=== PATIENT | female | born 1970 | race Caucasian/White ===

== ENCOUNTER 2018-12-13 15:06 | Emergency (ER) | payer OTHER ==
[~2018-12-13] VITALS: Ht 165.1 cm; Wt 77.1 kg
[~2018-12-13 15:06] MED LIST: ANAPROX DS550 MG PO
== END 2018-12-13 16:05 | disposition home or self-care (01) ==
LOC: ED 15:06
DX: L30.9 Dermatitis, unspecified (principal)

== ENCOUNTER 2020-01-05 12:40 | Emergency (ER) | payer OTHER ==
[~2020-01-05] VITALS: Wt 86.2 kg
[2020-01-05] MEDS ORDERED: CEPHALEXIN500 M1 PO (16:12)
== END 2020-01-05 16:22 | disposition home or self-care (01) ==
LOC: ED 12:40
DX: S60.552A Superficial foreign body of left hand, initial encounter (principal); Z79.899 Other long term (current) drug therapy; X58.XXXA Exposure to other specified factors, initial encounter; Y93.89 Activity, other specified; Y92.89 Other specified places as the place of occurrence of the external cause; Y99.8 Other external cause status

== ENCOUNTER 2020-12-15 13:06 | Emergency (ER) | payer OTHER ==
[~2020-12-15] VITALS: Wt 97.5 kg
[~2020-12-15 13:06] MED LIST changes: +CEPHALEXIN500 M1 PO
== END 2020-12-15 13:33 | disposition home or self-care (01) ==
LOC: ED 13:06
DX: L30.9 Dermatitis, unspecified (principal); Z79.899 Other long term (current) drug therapy; Z79.2 Long term (current) use of antibiotics

== ENCOUNTER → 2022-01-30 | Outpatient (CLI) | payer OTHER ==
[2022-01-30 12:30] LABS: BASO % 0.5 % (0.0-1.0); EOS # 0.2 10*3/uL (0.0-0.4); EOS % 2.5 % (1.0-4.0); HEMATOCRIT 42.3 % (37.0-47.0); LYMPH % 32.7 % (27.0-41.0); MEAN CELL VOLUME 92.8 fl (81.0-99.0); MEAN CORPUSCULAR HGB 31.4 pg (27.0-31.0); MEAN CORPUSCULAR HGB CONC 33.8 g/dl (33.0-37.0); MEAN PLATELET VOLUME 9.7 fl (9.6-12.3); MONO # 0.4 10*3/uL (0.1-1.0); MONO % 7.3 % (3.0-9.0); NEUT # 3.4 10*3/uL (2.3-7.9); NEUT % 56.5 % (47.0-73.0); PLATELET COUNT AUTOMATED 203 10*3/uL (130-400); RED BLOOD COUNT 4.56 10*6/uL (4.10-5.10)
[2022-01-30 12:49] LABS: ALKALINE PHOSPHATASE 77 U/L (45-117); BUN 16 mg/dl (7-24); CHLORIDE 112 mmol/L (98-107); CREATININE 0.79 mg/dL (0.55-1.02); POTASSIUM 4.2 mmol/L (3.5-5.1); SGOT/AST 11 IU/L (3-35); SGPT/ALT 21 U/L (12-78); SODIUM 143 mmol/L (136-145); TOTAL PROTEIN 7.3 gm/dL (6.4-8.2)
== END | disposition home or self-care (01) ==
LOC: LAB 12:13
PROVIDERS: ATTEND Specialist
DX: L25.9 Unspecified contact dermatitis, unspecified cause (principal); L20.9 Atopic dermatitis, unspecified; L29.9 Pruritus, unspecified; Z79.891 Long term (current) use of opiate analgesic

== ENCOUNTER → 2023-05-24 | Outpatient (CLI) | payer OTHER | END | disposition home or self-care (01) | LOC: MAMMO 03:55 | PROVIDERS: ATTEND Internal Medicine | DX: Z12.31 Encounter for screening mammogram for malignant neoplasm of breast (principal); N64.9 Disorder of breast, unspecified ==

== ENCOUNTER → 2023-07-07 | Outpatient (CLI) | payer OTHER | END | disposition home or self-care (01) | LOC: RESCLI 02:45 | PROVIDERS: ATTEND Student in an Organized Health Care Education/Training Program | DX: E66.01 Morbid (severe) obesity due to excess calories (principal); M51.26 Other intervertebral disc displacement, lumbar region; Z79.899 Other long term (current) drug therapy; Z72.0 Tobacco use; F10.90 Alcohol use, unspecified, uncomplicated; F12.90 Cannabis use, unspecified, uncomplicated ==

== ENCOUNTER 2023-09-02 07:03 | Emergency (ER) | payer OTHER ==
[~2023-09-02] VITALS: Ht 165.1 cm; Wt 96.2 kg
[2023-09-02] MEDS ORDERED: Dicyclomine Hydrochloride 20 MG/10 ML OSYR PO STA (07:48)
[2023-09-02] MEDS ORDERED: Lidocaine Hydrochloride 15 ML UDC PO STA (07:48)
[2023-09-02] MEDS ORDERED: MG-AL HYDROXIDE/SIMETICONE 30 ML UDC PO STA (07:48)
[2023-09-02] MEDS ORDERED: Ondansetron Hydrochloride 4 MG/2 ML VIAL IV ONE (07:50)
[2023-09-02] MEDS ORDERED: SODIUM CHLORIDE 0.9% 1,000 ML IV ONE (07:50)
[2023-09-02 08:13] LABS: BASO % 0.2 % (0.0-1.0); EOS % 0.4 % (1.0-4.0); HEMATOCRIT 43.9 % (37.0-47.0); LYMPH # 1.1 10*3/uL (1.3-4.4); LYMPH % 13.8 % (27.0-41.0); MEAN CELL VOLUME 91.1 fl (81.0-99.0); MEAN CORPUSCULAR HGB 31.3 pg (27.0-31.0); MEAN CORPUSCULAR HGB CONC 34.4 g/dl (33.0-37.0); MEAN PLATELET VOLUME 9.2 fl (9.6-12.3); MONO # 0.6 10*3/uL (0.1-1.0); MONO % 6.7 % (3.0-9.0); NEUT # 6.4 10*3/uL (2.3-7.9); NEUT % 78.3 % (47.0-73.0); PLATELET COUNT AUTOMATED 179 10*3/uL (130-400); RED BLOOD COUNT 4.82 10*6/uL (4.10-5.10); RED CELL DISTRI WIDTH 12.9 % (0-14.5); WHITE BLOOD COUNT 8.2 10*3/uL (4.8-10.8)
[2023-09-02 08:36] LABS: ALKALINE PHOSPHATASE 65 U/L (46-116); BUN 10 mg/dl (9-23); CHLORIDE 110 mmol/L (98-107); LIPASE 40 U/L (12-53); SGPT/ALT 29 U/L (5-49); TOTAL PROTEIN 6.9 gm/dL (6.0-8.0)
[2023-09-02] MEDS ORDERED: Ketorolac Tromethamine 30 MG/ML VIAL IV ONE (09:45)
[2023-09-02] MEDS ORDERED: Promethazine Hydrochloride 25 MG/ML VIAL IV ONE ×2 (09:45→09:55)
== END 2023-09-02 12:42 | disposition home or self-care (01) ==
LOC: ED 07:03
PROVIDERS: Internal Medicine
DX: R10.9 Unspecified abdominal pain (principal); R11.10 Vomiting, unspecified

== ENCOUNTER → 2023-12-09 | Outpatient (CLI) | payer OTHER ==
[2023-12-10 13:07] LABS: ANTI-DSDNA ANTIBODIES <1 IU/mL (0-9); ANTI-RNP ANTIBODIES <0.2 AI (0.0-0.9); ANTICHROMATIN ANTIBODIES <0.2 AI (0.0-0.9); ANTISCLERODERMA-70 AB <0.2 AI (0.0-0.9); SJOGREN ANTI-SS-A <0.2 AI (0.0-0.9); SJOREN AB, ANTI-SS-B <0.2 AI (0.0-0.9)
[2023-12-10 14:09] LABS: CCP ANTIBODIES IGG/IGA 3 units (0-19)
== END | disposition home or self-care (01) ==
LOC: LAB 13:38
PROVIDERS: ATTEND Internal Medicine
DX: L40.9 Psoriasis, unspecified (principal); M19.049 Primary osteoarthritis, unspecified hand

== ENCOUNTER 2024-03-08 13:38 | Emergency (ER) | payer OTHER ==
[~2024-03-08] VITALS: Ht 162.5 cm; Wt 95.3 kg
[2024-03-08] MEDS ORDERED: FLUORESCEIN SODIUM 1 MG STRIP OPH ONE (14:20)
[2024-03-08] MEDS ORDERED: Tetracaine Hydrochloride 0.5% 4 ML BOT OPH ONE (14:20)
[2024-03-08] MEDS ORDERED: Ciprofloxacin Hydrochloride 0.3% OPHTHLAMIC BOTTLE OPH ONE (15:10)
== END 2024-03-08 15:08 | disposition home or self-care (01) ==
LOC: ED 13:38
DX: S05.01XA Injury of conjunctiva and corneal abrasion without foreign body, right eye, initial encounter (principal); X58.XXXA Exposure to other specified factors, initial encounter; Y93.89 Activity, other specified; Y92.89 Other specified places as the place of occurrence of the external cause; Y99.8 Other external cause status

== ENCOUNTER → 2024-08-02 | Outpatient (CLI) | payer OTHER | END | disposition home or self-care (01) | LOC: MRI 10:00 | PROVIDERS: ATTEND Physical Medicine & Rehabilitation | DX: M16.12 Unilateral primary osteoarthritis, left hip (principal); M70.62 Trochanteric bursitis, left hip; M79.10 Myalgia, unspecified site ==

== ENCOUNTER 2024-12-03 18:29 | Emergency (ER) | payer OTHER ==
[~2024-12-03] VITALS: Ht 162.5 cm; Wt 93.0 kg
[2024-12-03] MEDS ORDERED: PREDNISONE50 MG PO (18:59)
== END 2024-12-03 19:13 | disposition home or self-care (01) ==
LOC: ED 18:29
DX: L30.9 Dermatitis, unspecified (principal)

== ENCOUNTER 2025-01-01 09:43 | Emergency (ER) | payer OTHER ==
[~2025-01-01] VITALS: Ht 162.5 cm; Wt 93.0 kg
[~2025-01-01 09:43] MED LIST changes: +PREDNISONE50 MG PO
[2025-01-01] MEDS ORDERED: PREDNISONE20 M1 PO (11:17)
[2025-01-01] MEDS ORDERED: CEPHALEXIN500 M1 PO (11:17)
[2025-01-01] MEDS ORDERED: CEPHALEXIN 500 MG CAP PO ONE (11:20)
== END 2025-01-01 11:31 | disposition home or self-care (01) ==
LOC: ED 09:43
DX: L30.9 Dermatitis, unspecified (principal)

== ENCOUNTER 2025-01-13 18:46 | Emergency (ER) | payer OTHER ==
[~2025-01-13] VITALS: Ht 162.5 cm; Wt 95.3 kg
[~2025-01-13 18:46] MED LIST changes: +PREDNISONE20 M1 PO
[2025-01-13] MEDS ORDERED: Acetaminophen/Oxycodone Hydr 7.5 MG/325 MG TABLET PO ONE (19:10)
[2025-01-13] MEDS ORDERED: diazePAM 5 MG TAB PO ONE (20:05)
[2025-01-13] MEDS ORDERED: PERCOCET 7.5-31 EACH PO (21:52)
[2025-01-13] MEDS ORDERED: NAPROSYN500 MG PO (21:53)
== END 2025-01-13 22:05 | disposition home or self-care (01) ==
LOC: ED 18:46
DX: M47.816 Spondylosis without myelopathy or radiculopathy, lumbar region (principal); Z79.899 Other long term (current) drug therapy